=== PATIENT | female | born 1930 | race Caucasian/White ===

== ENCOUNTER 2018-06-05 16:44 | Inpatient (IN) ==
[2018-06-05 17:23] LABS: BASO# 0.04 X1000 (0.0-0.2); BASO% 0.5 % (0.0-0.8); EOS# 0.43 X1000 (0.0-0.7); EOS% 5.6 % (0.0-10.0); HEMATOCRIT 47.8 % (37.0-47.0); HEMOGLOBIN 15.8 g/dL (12.0-16.0); IMM GRAN# 0.02 X1000 (0.0-0.04); IMM GRAN% 0.3 % (0.0-0.5); LYMPH# 2.95 X1000 (1.2-3.4); LYMPH% 38.6 % (20.5-51.1); MCH 29.1 PG (27-31); MCHC 33.1 g/dL (33-37); MONO% 9.2 % (1.7-9.3); MPV 11.5 FL (7.4-10.4); NEUT# 3.51 X1000 (1.4-6.5); NEUT% 45.8 % (42.2-75.2); PLT 181 X1000 (130-400); RBC 5.43 XMIL (4.2-5.4); RDW 14.4 % (11.5-14.5); WBC 7.65 X1000 (4.8-10.8)
--- NOTE | 2018-06-05 18:14 | PROVIDER DOCUMENTATION ---
This chart was entered by Liana Donaldson Scribe, acting as scribe for Johann Pandya MD. HPI-General Adult <Jacob Rogers - Last Filed: 06/05/18 20:05> - General Source: patient, family (sons x2) - History of Present Illness -Gen Adult Nature of Presenting Problems: 88 yowf presents to the ed with c/o rectal bleeding onset this afternoon while shopping with son. pt sts this is the first time since being placed on eliquis 2.5mg x2 daily. pt sts blood is bright red in color and is actively bleeding even without bm. pt on exam looks nontoxic in appearance Location of Pain/Injury: reports: other (rectal bleeding) Pain Radiation: reports: no radiation Quality of Pain: reports: other (tenderness) Severity: reports: moderate Onset/Duration: reports: this afternoon Timing: reports: still present, intermittent Context/Activities at Onset: reports: light activity Modifying Factors: improves with: nothing Associated Symptoms: reports: genitourinary problems (rectal bleeding). denies : back/neck pain, chest pain, constipation, cough, fever/chills, malaise, sinus congestion/drainage, nausea, vomiting, weakness Similar Symptoms Previously?: Yes (bleeding ulcer) Recently seen or treated by another doctor?: No <Johann Pandya - Last Filed: 06/06/18 09:18> - General Chief Complaint: Rectal Bleeding Stated Complaint: RECTAL BLEEDING,ABD PAIN Time Seen by Provider: 06/05/18 17:00 Allergies/Adverse Reactions: Patient Allergies Allergy/AdvReac Type Severity Reaction Status Date / Time No Known Allergies Allergy Verified 06/05/18 21:17 Home Medications: Home Medication List Medication Instructions Recorded Confirmed Last Taken Type Apixaban [Eliquis] 2.5 mg PO BID #0 tablet 03/01/14 06/05/18 06/05/18 Rx LISINOpril [Prinivil] 2.5 mg PO DAILY #0 tablet 03/01/14 06/05/18 06/05/18 Rx ROSUVAstatin [Crestor] 2.5 mg PO QHS #0 tablet 03/01/14 06/05/18 06/05/18 Rx Furosemide [Lasix] 40 mg PO DAILY #30 tab 02/20/17 06/05/18 06/05/18 Rx Omeprazole [Prilosec] 20 mg PO BID capsule 02/20/17 06/05/18 06/05/18 Rx Metoprolol Succinate E.r. [Toprol 50 mg PO DAILY #14 tab 03/06/17 06/05/1806/05 Rx Xl] Review of Systems - Adult - REVIEW OF SYSTEMS - ADULT Constitutional: denies: chills, fever Eyes: reports: no symptoms reported Ears, Nose, Mouth & Throat: reports: no symptoms reported Cardiovascular: denies: chest pain, palpitations Respiratory: denies: cough, shortness of breath, wheezing Gastrointestinal: reports: see HPI, rectal bleeding. denies: abdominal pain, diarrhea, nausea, vomiting Genitourinary: reports: no symptoms reported Musculoskeletal: denies: back pain, neck pain Integumentary: reports: no symptoms reported Neurological: denies: dizziness/vertigo, headache/migraines Psychiatric: reports: no symptoms reported Endocrine: reports: no symptoms reported Hematologic/Lymphatic: reports: no symptoms reported Allergic/Immunologic: reports: no symptoms reported All Other Systems: Reviewed and Negative <Johann Pandya - Last Filed: 06/06/18 09:18> Past History - Adult - PAST MEDICAL HISTORY-ADULT Review of Records: reports: Old Records Reviewed, Nursing Assessment Review, Medications Reviewed, Social history reviewed & non-contributory. Major Childhood Illnesses: reports: denies history Cardiovascular: reports: A-Fib, hyperlipidemia Respiratory: reports: denies history Gastrointestinal: reports: GERD, ulcer Obstetrical/Gynecological: reports: denies history Genitourinary: reports: kidney disease Musculoskeletal: reports: denies history Hand Dominance: Right Handed Neurological: reports: denies history Psychiatric: reports: denies history Endocrine/Immune: reports: denies history Other Conditions: reports: cataract/glaucoma - PRIOR SURGERIES/PROCEDURES Surgical/Procedure History: reports: hysterectomy - IMMUNIZATION STATUS Childhood Immunizations: See Nurse Assessment Flu Vaccine: See Nurse Assessment - FAMILY HISTORY Family History: reviewed, not pertinent - SOCIAL HISTORY Smoking: quit greater than 1 year Substance Use: denies Alcohol Use Frequency: never Living Situation: family <Johann Pandya - Last Filed: 06/06/18 09:18> Physical Exam-General - PHYSICAL EXAM-ADULT Initial Vital Signs Reviewed: Yes - CONSTITUTIONAL General Appearance: appears well, alert, no apparent distress - EYES Eyes: PERRL/EOMI, pink conjunctivae - HEAD, EARS, NOSE, MOUTH & THROAT HENMT: normocephalic/atraumatic, moist mucous membranes, normal ENT inspection - NECK Neck: non-tender, full range of motion, supple, normal inspection - RESPIRATORY Respiratory: chest non-tender, lungs clear, normal breath sounds - CARDIOVASCULAR Cardiovascular: normal peripheral pulses, regular rate, rhythm - CHEST (BREASTS) Chest/Breast: deferred - GASTROINTESTINAL (ABDOMEN) Abdominal Exam: normal bowel sounds, soft, tenderness (diffuse), other (well healed midline scar from hysterectomy) - GENITOURINARY Female Genitalia/Pelvic Exam: deferred Rectal Exam: deferred, other (pt has gross red blood on pad and no rectal exam was done) Hemoccult Exam: deferred - LYMPHATIC Lymphatic: no adenopathy - MUSCULOSKELETAL Back Exam: normal inspection, no CVA tenderness, no vertebral tenderness Extremity: normal range of motion, non-tender, normal gait, normal inspection, no pedal edema, no calf tenderness, normal capillary refill, pelvis stable <Johann Pandya - Last Filed: 06/06/18 09:18> Progress - PLAN OF CARE/RESULTS Progress/Plan/Lab Results: Vital Signs - 8 hr 06/05/18 16:49 Temperature 97.0 F L Pulse Rate 90 Respiratory Rate 18 Blood Pressure 133/104 O2 Sat by Pulse Oximetry 98 Laboratory Results - last 24 hr 06/05/18 06/05/18 06/05/18 17:05 17:05 17:05 WBC 7.65 RBC 5.43 H Hgb 15.8 Hct 47.8 H MCV 88.0 MCH 29.1 MCHC 33.1 RDW Std Deviation 14.4 Plt Count 181 MPV 11.5 H Immature Gran % (Auto) 0.3 Neut % (Auto) 45.8 Lymph % (Auto) 38.6 Cole % (Auto) 9.2 Eos % (Auto) 5.6 Baso % (Auto) 0.5 Immature Gran # (Auto) 0.02 Neut # (Auto) 3.51 Lymph # (Auto) 2.95 Cole # (Auto) 0.70 H Eos # (Auto) 0.43 Baso # (Auto) 0.04 Sodium 142 Potassium 3.6 Chloride 106 Carbon Dioxide 25 Anion Gap 11 BUN 20 Creatinine 1.4 H Estimated GFR/1.73 m2 35 BUN/Creatinine Ratio 14 Glucose 133 H Calculated Osmolality 288 Calcium 9.2 Total Bilirubin 0.70 AST 20 ALT 9 L Alkaline Phosphatase 86 Total Protein 6.9 Albumin 3.9 Globulin 3.0 Albumin/Globulin Ratio 1.3 Amylase 408 H Lipase 61 H Urine Source Urine Color Urine Turbidity Urine pH Ur Specific Surprise Urine Protein Ur Glucose (Stick) Ur Ketones (Stick) Urine Blood Urine Nitrite Urine Bilirubin Urobilinogen Dipstick Urine Leukocytes Urine WBC (Auto) Urine RBC (Auto) U Epithel Cells (Auto) Urine Bacteria (Auto) Urine Crystals Small Round Cells Urine Casts Urine Yeast-like Cells Blood Type A POSITIVE Antibody Screen NEGATIVE 06/05/18 18:49 WBC RBC Hgb Hct MCV MCH MCHC RDW Std Deviation Plt Count MPV Immature Gran % (Auto) Neut % (Auto) Lymph % (Auto) Cole % (Auto) Eos % (Auto) Baso % (Auto) Immature Gran # (Auto) Neut # (Auto) Lymph # (Auto) Cole # (Auto) Eos # (Auto) Baso # (Auto) Sodium Potassium Chloride Carbon Dioxide Anion Gap BUN Creatinine Estimated GFR/1.73 m2 BUN/Creatinine Ratio Glucose Calculated Osmolality Calcium Total Bilirubin AST ALT Alkaline Phosphatase Total Protein Albumin Globulin Albumin/Globulin Ratio Amylase Lipase Urine Source CLEAN CATCH Urine Color YELLOW Urine Turbidity HAZY Urine pH 5.5 Ur Specific [place]prise 1.049 Urine Protein 100 A Ur Glucose (Stick) NEGATIVE Ur Ketones (Stick) TRACE A Urine Blood LARGE A Urine Nitrite NEGATIVE Urine Bilirubin SMALL A Urobilinogen Dipstick 6 A Urine Leukocytes LARGE A Urine WBC (Auto) TNTC A Urine RBC (Auto) 10-20 A U Epithel Cells (Auto) >10 A Urine Bacteria (Auto) 2+ Urine Crystals Not Reportable Small Round Cells Not Reportable Urine Casts NONE SEEN Urine Yeast-like Cells Not Reportable Blood Type Antibody Screen Orders Category Date Time Status IV Insertion ORDERED Care 06/05/18 17:21 Completed Saline Loc DIRECTED Care 06/05/18 16:52 Active NPO Diet 06/05/18 16:52 Active AMYLASE [CHEM] Stat Lab 06/05/18 17:05 Completed CBC WITH ELECTRONIC DIFF [HEME] Stat Lab 06/05/18 17:05 Completed COMPREHENSIVE METABOLIC PANEL [CHEM] Stat Lab 06/05/18 17:05 Completed LIPASE [CHEM] Stat Lab 06/05/18 17:05 Completed TYPE & SCREEN [BBK] Stat Lab 06/05/18 17:05 Completed URINALYSIS W/POSS RFLX CULT [URINALYSIS] Stat Lab 06/05/18 18:49 Completed URINE CULTURE [RM] Routine Lab 06/05/18 19:25 Received URINE MANUAL MICROSCOPIC [URINALYSIS] Stat Lab 06/05/18 18:49 Completed EKG [EKG] Stat Ther 06/05/18 16:52 Ordered Pt signed out to me by Dr. Pandya, pt has rectal bleed, took addtional dose of Eliquis here in the ER, will admit patient for GI consult and probable colonoscopy Result Diagrams: 06/05/18 17:05 06/05/18 17:05 <Jacob Rogers - Last Filed: 06/05/18 20:05> - PLAN OF CARE/RESULTS Progress/Plan/Lab Results: Vital Signs - 8 hr 06/05/18 16:49 Temperature 97.0 F L Pulse Rate 90 Respiratory Rate 18 Blood Pressure 133/104 O2 Sat by Pulse Oximetry 98 Orders Category Date Time Status Saline Loc DIRECTED Care 06/05/18 16:52 Active NPO Diet 06/05/18 16:52 Active AMYLASE [CHEM] Stat Lab 06/05/18 17:04 Ordered CBC WITH ELECTRONIC DIFF [HEME] Stat Lab 06/05/18 17:04 Ordered COMPREHENSIVE METABOLIC PANEL [CHEM] Stat Lab 06/05/18 17:04 Ordered LIPASE [CHEM] Stat Lab 06/05/18 17:04 Ordered URINALYSIS W/POSS RFLX CULT [URINALYSIS] Stat Lab 06/05/18 16:52 Uncollected EKG [EKG] Stat Ther 06/05/18 16:52 Ordered Result Diagrams: 06/06/18 07:08 06/06/18 07:08 - EKG 1 Time of EKG reading by physician:: 17:04 EKG Read and Signed by:: Johann Pandya EKG Interpretation (*Must complete 3 of following elements*): Abnormal Rate: 82 Rhythm: afib with premature ventricular or aberrantly conducted complexes Talmage: normal QRS: other (low voltage qrs) DC Interval: normal ST Wave: normal Prior EKG Comparison: no prior EKG <Johann Pandya - Last Filed: 06/06/18 09:18> Departure - Departure Date of Disposition Decision: 06/05/18 Time of Disposition Decision: 20:06 Certified Medical Emergency: Emergent - Critical Care Note This patient required my direct & personal management of CC.: Yes <Jacob Rogers - Last Filed: 06/05/18 20:05> - Departure Certified Medical Emergency: Emergent - Critical Care Note This patient required my direct & personal management of CC.: Yes Total Time (mins): 34 Critical Care Statement: This patient required my direct personal management to treat or rule out processes, the absence of which, could potentiallly result in sudden, clinically significant life or limb threatening deterioration. <Johann Pandya - Last Filed: 06/06/18 09:18> - Departure DIAGNOSIS: Rectal bleeding Disposition: ADMITTED INPATIENT 09 Condition: Stable Attestation - Physician/ MARIAH Attestation Patient care was provided by Advanced Practice Provider:: No The physician spent face to face time with patient:: Yes Advanced Practice Provider documentation review:: Supervising physician onsite and consulted in the evaluation and care of this patient. The physician did have a face to face encounter with the patient. <Jacob Rogers - Last Filed: 06/05/18 20:05> - Physician/ MARIAH Attestation Patient care was provided by Advanced Practice Provider:: No The physician spent face to face time with patient:: Yes Advanced Practice Provider documentation review:: Supervising physician onsite and consulted in the evaluation and care of this patient. The physician did have a face to face encounter with the patient. <Johann Pandya - Last Filed: 06/06/18 09:18> This chart was documented by the indicated scribe, (Liana Donaldson Scribe) and accurately reflects the services I performed and decisions made by me, Johann Pandya MD, as attested by the provider's signature.
[2018-06-05 18:22] LABS: ALB/GLOB RATIO 1.3; ALBUMIN 3.9 g/dL (3.5-5.0); CALCIUM 9.2 mg/dL (8.8-10.2); CREATININE 1.4 mg/dL (0.5-0.9); POTASSIUM 3.6 mmol/L (3.5-5.1); TOTAL BILIRUBIN 0.7 mg/dL (0.20-1.00); TOTAL PROTEIN 6.9 g/dL (6.3-8.3)
[2018-06-05 19:16] LABS: URINE SOURCE CLEAN CATCH
[2018-06-05 19:23] LABS: BILIRUBIN URINE SMALL (NEGATIVE); BLOOD URINE LARGE (NEGATIVE); COLOR YELLOW; GLUCOSE URINE NEGATIVE (NEGATIVE); KETONE URINE TRACE mg/dL (NEGATIVE); LEUKOCYTES URINE LARGE (NEGATIVE); NITRITE URINE NEGATIVE (NEGATIVE); PH URINE 5.5; PROTEIN URINE 100 mg/dL (NEGATIVE); SP GRAVITY URINE 1.049; TURBIDITY URINE HAZY (CLEAR); UR EPITHELIAL CELLS >10 /HPF (<10); URINE BACTERIA 2+ /HPF; URINE WBC TNTC /HPF (<10); UROBILINOGEN URINE 6 mg/dL (NORMAL)
[2018-06-05 19:30] LABS: URINE CASTS NONE SEEN
[2018-06-05] MEDS ORDERED: ZOFRAN IV PRN (20:21)
[2018-06-05] MEDS ORDERED: NS 1,000 ML IV SCH (20:30)
[2018-06-05] MEDS ORDERED: CRESTOR PO SCH (21:00)
[2018-06-05] MEDS: PROTONIX IV SCH (21:12)
[2018-06-05] MEDS: ROCEPHIN 1 GM in NS 50 ML IV SCH (21:12)
--- NOTE | 2018-06-05 21:52 | HISTORY AND PHYSICAL ---
CHIEF COMPLAINT: Blood in stool. HISTORY OF PRESENT ILLNESS: This is an 88-year-old female who comes into the emergency room today after having complaint of rectal bleeding with an onset this afternoon while she was shopping with her son. She has been taking Eliquis 2.5 mg 2 times a day for quite some time now for atrial fibrillation with rapid ventricular rate. She is rate controlled with metoprolol. She has other past medical history that includes peptic ulcer disease, H. pylori which was treated in the past, diverticulosis and a bleeding peptic ulcer. Originally, she had 1 bowel movement that had bright red blood in it. There was some bleeding on a pad. She states that there is no bleeding at this moment. She will be admitted to the medical floor for further evaluation and treatment. PAST MEDICAL HISTORY: See HPI. PREVIOUS SURGICAL HISTORY: EGD and colonoscopy, hysterectomy years ago. SOCIAL HISTORY: No alcohol, tobacco or illicit drugs. FAMILY HISTORY: Denies any past medical history. States that her father was a heavy drinker and that he smoked, but states they both of old age. ALLERGIES: No known drug allergies. HOME MEDICATIONS: 1. Eliquis 2.5 mg p.o. b.i.d. 2. Lasix 40 mg p.o. daily. 3. Prilosec 20 mg p.o. b.i.d. 4. Lisinopril 2.5 mg p.o. daily. 5. Metoprolol 50 mg p.o. daily. 6. Crestor 2.5 mg p.o. at bedtime. REVIEW OF SYSTEMS: Fourteen point review of systems conducted with the patient. She complains of some vague abdominal cramping and tenderness to touch. Otherwise, a 14-point review of systems was negative except for other pertinent positives listed above in the HPI. PHYSICAL EXAMINATION: VITAL SIGNS: Temperature 97, pulse 90, respirations 18, blood pressure 133/104, oxygen saturation 98% on room air. GENERAL: Very pleasant 88-year-old female alert and oriented times 3, answers all questions appropriately, is in no acute distress. HEENT: Head is atraumatic, normocephalic. Pupils equal, round, reactive to light. Extraocular eye movement intact. Sclerae are anicteric. Conjunctiva is pink. Oral mucosa is moist. NECK: Supple. No JVD. No thyromegaly. Trachea is midline. No cervical lymphadenopathy. CARDIAC: S1, S2 appreciated. No murmurs, gallops, or rubs. LUNGS: Clear to auscultation bilaterally. No rhonchi, wheezes, rales. Symmetric rise and fall with respirations. ABDOMEN: Soft, nondistended, diffusely tender to palpation. Bowel sounds present all 4 quadrants, normoactive. No pulsatile mass. No organomegaly. EXTREMITIES: No clubbing, cyanosis, or edema. Two-plus pedal pulses bilaterally. GENITOURINARY: No bladder distention. Patient voids. Otherwise deferred. NEUROLOGICAL: Alert and oriented times 3. Cranial nerves II through XII grossly intact. LABORATORY DATA: WBC 7.65. Hemoglobin 15.8. Hematocrit 47.8. Platelet count 181. Sodium 142. Potassium 3.6. Chloride 106. Carbon dioxide 25. BUN 20. Creatinine 1.4. Glucose 133. Urine: Greater than 10 epithelial cells so appears to be a contaminated sample. However, it is leukocyte esterase positive with too numerous to count RBCs and 2-plus bacteria. ASSESSMENT AND PLAN: 1. Lower gastrointestinal bleed. We will consult Dr. Clement. Protonix 40 IV q.12 hours. Trend hemoglobin and hematocrit. NPO after midnight. Normal saline at 70 mL an hour. 2. Questionable urinary tract infection. Patient's sample was contaminated. We will start on Rocephin 1 g IV q.24 hours, wait on pending urine culture. 3. Hypertension. Continue home medications. 4. Hyperlipidemia. Continue home medications. 5. Atrial fibrillation with rapid ventricular response. We will hold Eliquis related to bleed. Continue metoprolol for rate control. Defer to primary team and GI when to start anticoagulation. Further recommendations per patient clinical course. Dictated by MARLON Loyd for Alphonso Teran MD cc: MARLON Loyd MD Amanda K. Anderson, CRNP
[2018-06-05] MEDS: CRESTOR PO SCH (21:55)
[2018-06-06 01:09] LABS: BASO# 0.03 X1000 (0.0-0.2); BASO% 0.4 % (0.0-0.8); EOS# 0.41 X1000 (0.0-0.7); EOS% 5.9 % (0.0-10.0); HEMATOCRIT 41.6 % (37.0-47.0); HEMOGLOBIN 13.8 g/dL (12.0-16.0); LYMPH% 44.9 % (20.5-51.1); MCH 29.4 PG (27-31); MCHC 33.2 g/dL (33-37); MCV 88.7 FL (81-99); MONO# 0.81 X1000 (0.11-0.59); MONO% 11.7 % (1.7-9.3); MPV 11.1 FL (7.4-10.4); NEUT# 2.56 X1000 (1.4-6.5); NEUT% 37.1 % (42.2-75.2); PLT 148 X1000 (130-400); RBC 4.69 XMIL (4.2-5.4); RDW 14.4 % (11.5-14.5); WBC 6.91 X1000 (4.8-10.8)
--- NOTE | 2018-06-06 04:06 | HISTORY AND PHYSICAL ---
ADDENDUM: Patient seen and examined by myself. Full note dictated and discussed with nurse practitioner. Patient presented to the ER after having noted some bright red blood in her stool. She does take Eliquis for I believe atrial fibrillation. She also has congestive heart failure. She has not had any previous bleeding. Patient denies any chest pain or palpitations. Unfortunately, she did take her Eliquis this morning and again while in the ER took her Eliquis tonight. We will admit to the hospital. Hemoglobin and hematocrit currently are stable. We will continue to follow. Check serial hemoglobin and hematocrit. Patient certainly will need to have endoscopy to rule out any further bleeding. We will continue to follow. cc: Alphonso Teran MD
[2018-06-06 07:20] LABS: BASO# 0.04 X1000 (0.0-0.2); BASO% 0.6 % (0.0-0.8); EOS# 0.48 X1000 (0.0-0.7); EOS% 7.2 % (0.0-10.0); HEMOGLOBIN 14.4 g/dL (12.0-16.0); LYMPH% 42.1 % (20.5-51.1); MCH 28.7 PG (27-31); MCHC 32.7 g/dL (33-37); MCV 87.6 FL (81-99); MONO# 0.73 X1000 (0.11-0.59); MPV 11.3 FL (7.4-10.4); NEUT% 39.1 % (42.2-75.2); PLT 157 X1000 (130-400); RBC 5.02 XMIL (4.2-5.4); RDW 14.2 % (11.5-14.5); WBC 6.65 X1000 (4.8-10.8)
[2018-06-06 07:27] LABS: INR 1.18
[2018-06-06 07:43] LABS: CALCIUM 8.2 mg/dL (8.8-10.2); CREATININE 1.3 mg/dL (0.5-0.9); MAGNESIUM 1.7 mg/dL (1.5-2.7); POTASSIUM 3.6 mmol/L (3.5-5.1)
[2018-06-06] MEDS: PRINIVIL PO SCH (09:37)
[2018-06-06] MEDS: PROTONIX IV SCH ×2 (09:37→19:45)
[2018-06-06] MEDS: TOPROL XL PO SCH (09:37)
[2018-06-06 12:32] LABS: BASO# 0.04 X1000 (0.0-0.2); BASO% 0.5 % (0.0-0.8); EOS# 0.47 X1000 (0.0-0.7); EOS% 6.3 % (0.0-10.0); HEMATOCRIT 43.5 % (37.0-47.0); HEMOGLOBIN 14.3 g/dL (12.0-16.0); IMM GRAN# 0.02 X1000 (0.0-0.04); IMM GRAN% 0.3 % (0.0-0.5); MCHC 32.9 g/dL (33-37); MCV 88.2 FL (81-99); MONO# 0.58 X1000 (0.11-0.59); MONO% 7.8 % (1.7-9.3); MPV 11.3 FL (7.4-10.4); NEUT# 3.43 X1000 (1.4-6.5); NEUT% 46.1 % (42.2-75.2); PLT 151 X1000 (130-400); RBC 4.93 XMIL (4.2-5.4); RDW 14.3 % (11.5-14.5); WBC 7.44 X1000 (4.8-10.8)
--- NOTE | 2018-06-06 15:27 | PROGRESS NOTE ---
DATE: 06/06/2018 SUBJECTIVE: This patient seems to be stable, she has been having some mild abdominal distention but as per the daughter which is at the bedside, she has been having this problem for a few months. She has been losing weight also but apparently this is expected due to a new diet that has been recommended by her inside sales engineer. We have stopped the Eliquis because this patient has a lower GI bleed, as per the patient, this morning she had a bowel movement without blood. Case has been discussed with Dr. Clement. Likely she will be prepared for a colonoscopy tomorrow. Likely she will be prepared with GoLYTELY or some other medications tomorrow so she can have a colonoscopy done on Friday. Hemoglobin and hematocrit are stable. OBJECTIVE: Vital Signs: Temperature 97.1, pulse 82, respiratory rate 20, blood pressure 143/81, oxygen saturation 97% on room air. HEENT: Head normocephalic. No trauma. PERRLA. Neck: Supple. No JVD. No masses. Central trachea. Chest: Clear to auscultation. No wheezing. No rales. Abdomen: Soft. A little bit distended. Diffuse tenderness to palpation. Positive bowel sounds, no signs of peritoneal irritation. Extremities: No edema. No clubbing. No cyanosis. Neurological: The patient is alert and oriented x3. No focal deficits. LABORATORY: WBC 7.4, hemoglobin 14.3, hematocrit 43.5, platelets 151,000. Sodium 143, potassium 3.6, chloride 110, bicarbonate 23, BUN 19, creatinine 1.3, glucose 107, calcium 8.2, amylase 408, lipase 61, TSH 3.3. ASSESSMENT AND PLAN: 1. Lower GI bleed. Dr. Clement has been consulted. We have started this patient on Protonix. We will monitor her hemoglobin and hematocrit. She has been placed NPO but I believe she is going to be scoped next Friday so I have placed this patient on a liquid diet. I have stopped the normal saline. 2. Questionable urinary tract infection. Urine sample looks infected so she has been started on Rocephin. 3. Hypertension. Continue home medication. 4. Hyperlipidemia. Continue home medication. 5. Atrial fibrillation, rate controlled. We will hold Eliquis due to her GI bleed. We will monitor for now. 6. Chronic kidney disease, stable. This is her baseline. 7. Mild lipase and amylase increased. She has been complaining of generalized abdominal discomfort. She is not having nausea or vomiting. Actually, she is tolerating p.o. I will let the Gastroenterology Department evaluate this patient and decide further treatment. cc: Sami Bello MD
--- NOTE | 2018-06-06 16:10 | GASTROENTEROLOGY CONSULTATION ---
DATE: 06/06/2018 REASON FOR CONSULTATION: Blood in the stool. HISTORY OF PRESENT ILLNESS: An 88-year-old lady with some rectal bleeding while shopping, initially bright red blood and later some in her bed. She thinks it is not a whole lot. She never had bleeding, so she came in. She did have a history of ulcer disease and diverticulosis. PAST MEDICAL HISTORY: 1. Atrial fibrillation with rapid ventricular response on Eliquis. 2. Diverticulosis. 3. Peptic ulcer disease. PAST SURGICAL HISTORY: Hysterectomy. FAMILY HISTORY: Negative. ALLERGIES: None. HOME MEDICATIONS: Eliquis 2.5, Prilosec 20, lisinopril 2.5 mg, metoprolol 50 daily. REVIEW OF SYSTEMS: Fourteen point otherwise negative. PHYSICAL EXAMINATION: Vital Signs: Temperature 97 degrees, pulse 90, respiration 18, blood pressure 133/104, O2 saturation 98. General: An 88-year-old lady, presently alert. Family at bedside. HEENT: No conjunctival pallor. No icterus. Neck: Supple. Trachea midline. Heart: First and second heart sounds. Lungs: Clear. Abdomen: Soft, nondistended, no tenderness. Extremities: No cyanosis or clubbing. Neurological: Alert and oriented. LABORATORY DATA: Hemoglobin and hematocrit is stable at 15 and 45. PT slightly up. IMPRESSION AND PLAN: 1. Possible hemorrhoidal bleed, hemodynamically insignificant. 2. Possible urinary tract infection. 3. Hypertension. 4. Hyperlipidemia. 5. Atrial fibrillation with rapid ventricular response. Hold Eliquis. Talked to the family. We might think of at least doing a flexible sigmoidoscopy Friday, depending on tomorrow. We will keep her off Eliquis until that time. cc: Ирина Clement MD
[2018-06-06 17:47] LABS: BASO# 0.04 X1000 (0.0-0.2); BASO% 0.5 % (0.0-0.8); EOS# 0.46 X1000 (0.0-0.7); EOS% 6.3 % (0.0-10.0); HEMOGLOBIN 15.7 g/dL (12.0-16.0); LYMPH# 2.54 X1000 (1.2-3.4); LYMPH% 34.6 % (20.5-51.1); MCHC 32.7 g/dL (33-37); MCV 88.6 FL (81-99); MONO% 9.5 % (1.7-9.3); MPV 11.5 FL (7.4-10.4); NEUT% 49.1 % (42.2-75.2); PLT 165 X1000 (130-400); RBC 5.42 XMIL (4.2-5.4); RDW 14.4 % (11.5-14.5); WBC 7.34 X1000 (4.8-10.8)
[2018-06-06] MEDS: ROCEPHIN 1 GM in NS 50 ML IV SCH (19:45)
[2018-06-06] MEDS: SODIUM CHLORIDE 0.9% INJ SCH (19:45)
[2018-06-06] MEDS: CRESTOR PO SCH (19:59)
[2018-06-06] MEDS ORDERED: CRESTOR PO SCH (21:00)
[2018-06-07 07:18] LABS: BASO# 0.04 X1000 (0.0-0.2); BASO% 0.5 % (0.0-0.8); EOS% 7.4 % (0.0-10.0); HEMATOCRIT 46.1 % (37.0-47.0); HEMOGLOBIN 15.2 g/dL (12.0-16.0); LYMPH# 3.16 X1000 (1.2-3.4); LYMPH% 38.9 % (20.5-51.1); MCH 29.1 PG (27-31); MCV 88.1 FL (81-99); MONO# 0.79 X1000 (0.11-0.59); MONO% 9.7 % (1.7-9.3); MPV 11.7 FL (7.4-10.4); NEUT# 3.54 X1000 (1.4-6.5); NEUT% 43.5 % (42.2-75.2); PLT 173 X1000 (130-400); RBC 5.23 XMIL (4.2-5.4); RDW 14.5 % (11.5-14.5); WBC 8.13 X1000 (4.8-10.8)
[2018-06-07 07:37] LABS: HEMOGLOBIN A1C 5.4 % (4.8-6.0)
[2018-06-07 07:43] LABS: CALCIUM 9.2 mg/dL (8.8-10.2); POTASSIUM 3.8 mmol/L (3.5-5.1)
[2018-06-07] MEDS: TOPROL XL PO SCH (08:22)
[2018-06-07] MEDS: PRINIVIL PO SCH (08:22)
[2018-06-07] MEDS: PROTONIX IV SCH ×2 (08:22→20:56)
[2018-06-07] MEDS: SODIUM CHLORIDE 0.9% INJ SCH (08:22)
--- NOTE | 2018-06-07 15:26 | PROGRESS NOTE ---
DATE: 06/07/2018 SUBJECTIVE: Patient is resting comfortably in bed. OBJECTIVE: Vital signs: Temperature [*] degrees, pulse 89, respirations [*], blood pressure 122/64, oxygen saturation is 94%. HEENT: Atraumatic, normocephalic. Cardiovascular system: S1, S2. Respiratory system: Has evidence of good air entry bilaterally. Abdomen: Soft, nontender. No masses felt. Extremities: No evidence of edema. Central nervous system: No obvious focal deficits noted. LABS: WBC 8.13, hematocrit 46.1, with a platelet count of 170,000. Sodium is 141, potassium 3.2, chloride is 109, bicarb is 21, BUN is 11, creatinine is 1.0. Urine culture shows no pathogenic growth. ASSESSMENT AND PLAN: 1. Gastrointestinal bleed. Continue PPI. Follow up on hemoglobin and hematocrit. Transfuse PRBCs as needed. GI is following. 2. Probable urinary tract infection. Urine cultures came back as no growth. I will proceed and repeat her urine culture. 3. Hypertension. Continue current regimen. 4. Hyperlipidemia. Continue current regimen. 5. Atrial fibrillation. The patient's heart rate is controlled and Eliquis is currently on hold. 6. Chronic kidney disease. Renal function seems to have improved. 7. Deep vein thrombosis prophylaxis. SCDs. cc: Anselmo Holland MD
[2018-06-07] MEDS: ROCEPHIN 1 GM in NS 50 ML IV SCH (20:55)
[2018-06-07] MEDS: CRESTOR PO SCH (20:55)
--- NOTE | 2018-06-08 07:23 | EKG Report ---
Test Performed on : 06/06/2018 06:25:50 AM Test Reason : chest pain Blood Pressure : / mmHG Vent. Rate : 068 BPM Atrial Rate : 117 BPM P-R Int : 000 ms QRS Dur : 098 ms QT Int : 428 ms P-R-T Axes : 000 005 -60 degrees QTc Int : 455 ms Atrial fibrillation. Low voltage QRS Incomplete right bundle branch block Possible Anterolateral infarct (cited on or before 25-FEB-2014) Abnormal ECG When compared with ECG of 05-JUN-2018 16:59, (Unconfirmed) No significant change was found Unconfirmed Result
--- NOTE | 2018-06-08 07:46 | EKG Report ---
Test Performed on : 06/05/2018 4:59:51 PM Test Reason : rectal bleeding Blood Pressure : / mmHG Vent. Rate : 082 BPM Atrial Rate : 053 BPM P-R Int : 000 ms QRS Dur : 090 ms QT Int : 402 ms P-R-T Axes : 000 006 -73 degrees QTc Int : 469 ms Atrial fibrillation. with premature ventricular or aberrantly conducted complexes. Low voltage QRS Cannot rule out Anteroseptal infarct (cited on or before 25-FEB-2014) Abnormal ECG When compared with ECG of 17-FEB-2017 11:38, Nonspecific T wave abnormality now evident in Lateral leads Unconfirmed Result
[2018-06-08] MEDS: PROTONIX IV SCH ×2 (08:06→20:13)
[2018-06-08] MEDS: SODIUM CHLORIDE 0.9% INJ SCH (08:06)
[2018-06-08] MEDS ORDERED: DIPRIVAN 1% ONE (11:20)
[2018-06-08] MEDS: TOPROL XL PO SCH (13:15)
[2018-06-08] MEDS: PRINIVIL PO SCH (13:15)
--- NOTE | 2018-06-08 18:36 | PROGRESS NOTE ---
DATE: 06/08/2018 SUBJECTIVE: Patient is resting comfortably in bed. OBJECTIVE: Vital Signs: Temperature 97.6 degrees, pulse 111, respiratory rate 16, blood pressure 133/89, oxygen saturation is 96%. HEENT: Atraumatic, normocephalic. Cardiovascular system: S1, S2. Irregular. Respiratory system: Has evidence of good air entry bilaterally. Abdomen: Soft, nontender. No masses felt. Extremities: No evidence of significant edema noted. LABS: None. ASSESSMENT AND PLAN: 1. Gastrointestinal bleed. The patient had lower GI endoscopic studies today. The patient will be followed by the GI team and will follow up on her hemoglobin and hematocrit. Transfuse PRBCs as needed. 2. Hypertension. Continue current antihypertensive regimen. 3. Hyperlipidemia. Continue statin. 4. Atrial fibrillation. Heart rate controlled. Eliquis is on hold in light of GI bleed. 5. Chronic kidney disease. Improved. 6. Deep vein thrombosis prophylaxis. SCDs. cc: Anselmo Holland MD
[2018-06-08] MEDS: CRESTOR PO SCH (20:12)
[2018-06-08] MEDS: ROCEPHIN 1 GM in NS 50 ML IV SCH (20:12)
[2018-06-08] MEDS: ANUSOL-HC CREAM PR SCH (20:13)
--- NOTE | 2018-06-08 20:55 | OPERATIVE NOTE ---
PROCEDURE DATE: 06/08/2018 ATTENDING PHYSICIAN: Anselmo Holland MD PRIMARY CARE PROVIDER: MARLON Garcia TITLE OF THE PROCEDURE: Colonoscopy with hepatic flexure polypectomy with snare cautery. PREOPERATIVE DIAGNOSIS: Rectal bleeding. POSTOPERATIVE DIAGNOSES: 1. Internal hemorrhoids, grade 2-3, on retroflexion. 2. Evidence of diverticulosis, sigmoid and descending colon starts at about 35 cm from the anal verge up to 20 cm from the anal verge. There was evidence of stool throughout the colon, which was lavaged. 3. This was evidence of a polyp measuring 1 cm in the hepatic flexure, which was removed using snare cautery polypectomy. 4. Solid stool noted in the ascending colon and in the cecum. ESTIMATED BLOOD LOSS: Minimal. COMPLICATIONS: None. ANESTHESIA: Monitored anesthesia care per the anesthesiologist. SPECIMEN: Hepatic flexure polyp. PROCEDURE: After informed consent and the patient and family explained the risks, benefits, indications, and alternatives to the procedure, the patient was prepared for colonoscopy. The risks of the procedure, including infection, bleeding, pain, trauma to the surrounding structures, and perforation were explained to the patient and family, and they acknowledged and agreed to proceed with the procedure. The patient was brought to the OR. She was turned in a left lateral position. Rectal exam was performed, which revealed normal rectal tone. No masses felt. No blood on the examining finger. The colonoscope was introduced into the anal verge and traversed all the way to the cecum. Cecum was identified by landmarks like the appendiceal orifice and IC valve. There was evidence of solid stool in the cecum and ascending colon was lavaged. There was evidence of a polyp in the hepatic flexure, measuring 1 cm and sessile, which was removed using snare cautery polypectomy and successfully retrieved. There was evidence of a small amount of stool in the transverse and descending and sigmoid colon. This was lavaged. There was evidence of diverticulosis in the descending and sigmoid colon, moderate degree. There was evidence of internal hemorrhoids grade 2 and 3 on retroflexion. Next the air was released and the scope was withdrawn. The patient tolerated the procedure well, was monitored in the OR in stable condition. RECOMMENDATIONS: 1. Patient will be on full liquid diet for 3 days and advance as tolerated. 2. Patient will be on Metamucil 1 tablespoon every day. 3. We will start on Proctosol HC 2.5% cream per rectal b.i.d. for 4 weeks. 4. The patient will follow up in the office in 4 weeks of discharge to review pathology results. 5. The patient will take a high-fiber diet in the form of above adding fresh fruits and greens to the diet. 6. The patient avoid excessive corn, nuts, and seeds in diet. 7. Further recommendations to follow pending the hospital course. Please call us with any further questions. cc: MD Anselmo Bourne MD Amanda K. Anderson, CRNP
[2018-06-08] MEDS ORDERED: METAMUCIL POWDER PACKET PO SCH (21:00)
[2018-06-09 07:38] VITALS: BP 149/75
[2018-06-09] MEDS: ANUSOL-HC CREAM PR SCH (08:59)
[2018-06-09] MEDS: PROTONIX IV SCH (09:00)
[2018-06-09] MEDS: PRINIVIL PO SCH (09:00)
[2018-06-09] MEDS: SODIUM CHLORIDE 0.9% INJ SCH (09:01)
[2018-06-09] MEDS: TOPROL XL PO SCH (09:01)
--- NOTE | 2018-06-09 12:35 | GASTROENTEROLOGY PROGRESS NOTE ---
DATE: 06/07/2018 SUBJECTIVE: The patient is resting comfortably. No further bleeding since admission. OBJECTIVE: Vital Signs: Temperature normal, pulse 89, respirations 12, blood pressure 122/64, O2 saturation 94%. HEENT: No conjunctival pallor. Neck: Supple. Trachea midline. Heart: Normal. Abdomen: Soft, nontender. LABS: Hematocrit is normal. Platelets are normal. BUN and creatinine are normal. IMPRESSION AND PLAN: 1. Lower gastrointestinal bleed, Most likely hemorrhoidal, and since stopping Eliquis has not had any bleeding. We will plan to at least do a proctoscopy or sigmoidoscopy since it appears low before she goes home. 2. Probable urinary tract infection. 3. Hypertension. 4. Atrial fibrillation on Eliquis. 5. Hyperlipidemia. 6. Deep vein thrombosis prophylaxis. Dr. Ibarra will check her out and will discharge her home after that. cc: Ирина Clement MD
--- NOTE | 2018-06-09 14:48 | PROVIDER PROGRESS NOTE ---
Progress Note - - 06/09/2018 SUBJECTIVE: No acute overnight events. Afebrile. No N/V, CP, SOB, abdominal pain or rectal bleeding. OBJECTIVE: Last Vital Signs Temp 98.1 F 06/09/18 07:38 Pulse 94 H 06/09/18 07:38 Resp 18 06/09/18 07:38 BP 149/75 06/09/18 07:38 Pulse Ox 93 L 06/09/18 07:38 Height 5 ft 7 in Weight 153 lb GEN: awake, alert, NAD HEENT: anicteric, MMM NECK: supple, no JVD CV: regular rate, no murmurs PULM: CTAB ABD: soft NT/ND, NABS EXT: no cce NEURO: nonfocal LABS: None Colonoscopy 3/4 POSTOPERATIVE DIAGNOSES: 1. Internal hemorrhoids, grade 2-3, on retroflexion. 2. Evidence of diverticulosis, sigmoid and descending colon starts at about 35 cm from the anal verge up to 20 cm from the anal verge. There was evidence of stool throughout the colon, which was lavaged. 3. This was evidence of a polyp measuring 1 cm in the hepatic flexure, which was removed using snare cautery polypectomy. 4. Solid stool noted in the ascending colon and in the cecum. A/P: Ms. Clements is a 88 year old woman with HTN, HLD, afib on Eliquis, CKD who was admitted with rectal bleeding without anemia. Colonoscopy yesterday revealed diverticulosis, internal hemorrhoids, and colonic polyp. Her rectal bleeding is likely hemorrhoidal. Resolved. #Bleeding hemorrhoids: continue support tx with hydrocortisone AL; high fiber diet; supplemental fiber #AFIB: rate controlled; can resume Eliquis on discharge #ARTURO on CKD: resolved #GI ppx: can stop PPI #HTN: controlled Will sign off. Please call with questions or concerns. Patient can follow-up with Dr. Ibarra in 4 weeks
[2018-06-09] MEDS: FLU VACCINE IM ONE ×2 (15:28→15:29)
--- NOTE | 2018-06-09 19:31 | DISCHARGE SUMMARY ---
ADMISSION DATE: 06/05/2018 DISCHARGE DATE: 06/09/2018 DISCHARGE DIAGNOSES: 1. Internal hemorrhoids, grade 2-3 on retroflexion. 2. Diverticulosis, sigmoid and descending colon. 3. Polyp measuring 1 cm in the hepatic flexure, removed. 4. Lower gastrointestinal bleed, likely secondary to #1. 5. Questionable urinary tract infection with negative urine culture, no symptoms. 6. Hypertension, stable. 7. Hyperlipidemia. Continue with home medications. 8. Atrial fibrillation. Rate control. We are going to continue holding her Eliquis for 3 more days. She can restart this medication if no evidence of bleeding. 9. Chronic kidney disease, stable. PROCEDURES PERFORMED: Colonoscopy with hepatic flexure, polypectomy with snare cautery dated 06/08/2018. Postoperative diagnoses: 1. Internal hemorrhoids, grade 2-3 on retroflexion. 2. Evidence of diverticulosis, sigmoid and descending colon, starts at about 35 cm from the anal verge up to 20 cm from the anal verge. There was evidence of stool throughout the colon, which was lavaged. 3. There was evidence of a polyp measuring 1 cm in the hepatic flexure, which was removed using snare cautery polypectomy. 4. Solid stool noted in the ascending colon and in the cecum. HOSPITAL COURSE: An 88-year-old, female with a past medical history of atrial fibrillation, peptic ulcer disease, H pylori that has been treated in the past, diverticulosis and bleeding peptic ulcer presented to the emergency department after having rectal bleeding that has happened the afternoon of 06/05/2018. It looks like she had 1 bowel movement that had bright red blood in it, and there was some bleeding on a pad. She states that there is no bleeding at the time of admission. She was admitted to the medical floor, and gastroenterology department was consulted. We held her Eliquis, and they have been told that they will perform a colonoscopy, which was performed on 06/08/2018, with evidence of internal hemorrhoids grade 2-3 on retroflexion, evidence of diverticulosis, sigmoid and descending colon starting about 35 cm from the anal verge up to 20 cm from the anal verge, evidence of a polyp measuring 1 cm in the hepatic flexure that was removed. This patient was transferred back to the floor. Probably the bleeding was coming from the hemorrhoids based on the history. It has been recommended to be on a liquid diet for at least 3 days and advance as tolerated, also use Metamucil 1 tablespoon every day, start with Proctosol HC 2.5% cream per rectum twice a day for 4 weeks. Also they want to follow this patient up in 4 weeks of discharge to review pathology results. They recommended a high- fiber diet and avoid excessive corn, nuts and seeds in diet. The patient and the family member at the bedside have been educated about these recommendations, and they agree with that. She seems to be doing better. She will be discharged today. At the moment of discharge, this patient was tolerating p.o., and she was completely alert and oriented x3. DISCHARGE PHYSICAL EXAMINATION: Vital Signs: Temperature 98.1 degrees, pulse 94, respiratory rate 18, blood pressure 149/75, oxygen saturation 93% on room air. HEENT: Head normocephalic. No trauma. PERRLA. Neck: Supple. No JVD. No masses. Central trachea. Chest: Clear to auscultation. No wheezing. No rales. Abdomen: Soft. Nontender. Positive bowel sounds. Extremities: No edema. No clubbing. No cyanosis. Neurological Examination: The patient was alert and oriented x3. No focal deficits. LABORATORY DATA: No lab work done today. Previous laboratory from 06/07/2018: WBC 8.1, hemoglobin 15.2, hematocrit 46.1, platelets 173,000, sodium 141, potassium 3.8, chloride 109, bicarbonate 21, BUN 11, creatinine 1, glucose 112, calcium 9.2. FOLLOWUP: With Dr. Carranza, Gastroenterology Department, in 4 weeks. DISCHARGE MEDICATIONS: Crestor 2.5 mg p.o. at bedtime, omeprazole 20 mg p.o. b.i.d., metoprolol succinate ER 50 mg p.o. daily, lisinopril 2.5 mg p.o. daily, furosemide 40 mg p.o. daily, Eliquis 2.5 mg p.o. b.i.d., which she will restart in 3 days if no signs of bleeding, Metamucil 1 packet p.o. at bedtime and Anusol HC cream 1 application per rectum twice a day. TIME SPENT DISCHARGING THIS PATIENT: 35 minutes. cc: Sami Bello MD
== END 2018-06-09 16:10 | disposition home health service (06) | DRG 394 ==
LOC: ED 16:44 → SUATTDRO 22:23 → 3N 22:23
PROVIDERS: ATTEND Internal Medicine
CPT/HCPCS: 80048; 80053; 81001; 82150; 83036; 83690; 83735; 84443; 85025; 85610; 86850; 86900; 86901; 87088; 88305; 93005; 93010; 96361; 96365; 96375; 99285; 99291; A9270; C9113; J0696; J7030; S0164